=== PATIENT | female | born 1950 | race Caucasian/White ===

== ENCOUNTER → 2016-10-22 | Outpatient (CLI) | payer BC ==
--- NOTE | 2016-10-23 09:33 | ECHOF ---
Referral Reason:R01.1 Cardiac Murmur,I10 HTN MEASUREMENTS -------- HEIGHT: 180.3 cm WEIGHT: 108.9 kg BP: RVIDd: 3.2 cm (< 3.3) IVSd: 1.3 cm (0.6 - 1.1) LVIDd: 4.4 cm (3.9 - 5.3) LVPWd: 1.3 cm (0.6 - 1.1) IVSs: 1.7 cm LVIDs: 3.0 cm LVPWs: 1.7 cm LA Diam: 3.6 cm (2.7 - 3.8) LAESV Index (A-L): 32.77 ml/m Ao Diam: 3.0 cm (2.0 - 3.7) AV Cusp: 1.7 cm (1.5 - 2.6) MV EXCURSION: 16.312 mm (> 18.000) MV EF SLOPE: 89 mm/s (70 - 150) EPSS: 0.6 cm MV E Kelby: 0.84 m/s MV DecT: 256 ms MV A Kelby: 0.76 m/s MV E/A Ratio: 1.11 AV maxP.98 mmHg AV maxP.98 mmHg AV meanP.49 mmHg FINDINGS -------- Sinus rhythm. This was a technically good study. The left ventricular size is normal. There is mild concentric left ventricular hypertrophy. Overall left ventricular systolic function is normal with, an EF between 60 - 65 %. The right ventricle is normal in size and function. LA is midly dilated 29-33ml/m2. The right atrium is normal in size. There is mild aortic valve sclerosis. Mild mitral regurgitation is present. The tricuspid valve appears structurally normal. No regurgitation noted Trace/mild (physiologic) pulmonic regurgitation. The aortic root size is normal. The inferior vena cava is mildly dilated. There is no pericardial effusion. CONCLUSIONS -------- 1. Sinus rhythm. 2. Mild mitral regurgitation is present. 3. The tricuspid valve appears structurally normal. 4. Trace/mild (physiologic) pulmonic regurgitation. 5. The aortic root size is normal. 6. The inferior vena cava is mildly dilated. 7. There is no pericardial effusion. 8. This was a technically good study. 9. The left ventricular size is normal. 10. There is mild concentric left ventricular hypertrophy. 11. Overall left ventricular systolic function is normal with, an EF between 60 - 65 %. 12. The right ventricle is normal in size and function. 13. LA is midly dilated 29-33ml/m2. 14. The right atrium is normal in size. 15. There is mild aortic valve sclerosis. HEAD OF STRATEGY: Genny Hubbard RDCS
--- NOTE | 2016-10-30 12:03 | P.ARTDOP ---
Arterial Doppler LOWER EXTREMITY ARTERIAL DOPPLER: DATE OF SERVICE: 10/22/2016 Reason for study: Lack of pulses. Doppler waveforms: Multiphasic bilaterally throughout. Pulse volume recording: Normal configuration. Pressure gradients: None. Ankle-brachial indices: Greater than 1 bilaterally. Toe pressures: [] on the right, [] on the left Impression: Normal study.
== END | disposition home or self-care (01) ==
LOC: RADECHMAIN 13:01
PROVIDERS: ATTEND Family Medicine
DX: I08.8 Other rheumatic multiple valve diseases (principal); I70.0 Atherosclerosis of aorta; I10 Essential (primary) hypertension; R90.89 Other abnormal findings on diagnostic imaging of central nervous system
CPT/HCPCS: 93306; 93923